=== PATIENT | female | born 1985 | race Two or more races ===

== ENCOUNTER 2023-10-30 15:56 | Emergency (ER) | payer OTHER ==
[~2023-10-30] VITALS: Ht 162.6 cm; Wt 102.1 kg
[2023-10-30 16:52] LABS: HEMATOCRIT 42.4 % (36.0-45.00); HEMOGLOBIN 14.8 g/dL (12.0-15.00); MEAN CELL VOLUME 87.1 fL (80.00-100.00); MEAN CORPUSCULAR HEMOGLOBIN 30.5 pg (27.00-32.0); PLATELET COUNT 298 K/uL (150-450); RED BLOOD COUNT 4.87 M/uL (4.00-6.00); RED CELL DISTRIBUTION WIDTH 13.4 % (11.5-14.5)
[2023-10-30 17:14] LABS: CALCIUM 9.5 mg/dL (8.5-10.1); CREATININE SERUM 0.82 mg/dL (0.55-1.02); GFR 77.21; POTASSIUM 3.82 mEq/L (3.5-5.1)
== END 2023-10-30 18:52 | disposition home or self-care (01) ==
LOC: ER 15:57
PROVIDERS: Emergency Medicine
DX: K29.70 Gastritis, unspecified, without bleeding (principal); Z20.822 Contact with and (suspected) exposure to COVID-19; Z91.013 Allergy to seafood

== ENCOUNTER 2024-02-21 06:52 | Emergency (ER) | payer OTHER ==
[~2024-02-21] VITALS: Ht 162.6 cm; Wt 105.2 kg
[2024-02-21] MEDS ORDERED: ORPHENADRINE CITRATE 30 MG/ML AMPUL IM STA (08:27)
[2024-02-21] MEDS ORDERED: DEXAMETHASONE SODIUM PHOSPHATE 4 MG/ML VIAL IM STA (08:27)
[2024-02-21] MEDS ORDERED: KETOROLAC TROMETHAMINE 30 MG VIAL IM ONE (08:30)
[2024-02-21] MEDS ORDERED: IBU800 MG PO (10:42)
[2024-02-21] MEDS ORDERED: GABAPENTIN100 M2 PO (10:42)
== END 2024-02-21 12:03 | disposition home or self-care (01) ==
LOC: ER 06:53
DX: M54.50 Low back pain, unspecified (principal); Z91.013 Allergy to seafood; J45.909 Unspecified asthma, uncomplicated